=== PATIENT | female | born 1945 | race Hispanic/Latino ===

== ENCOUNTER 2018-06-08 09:22 | Emergency (ER) | payer BC, MEDICARE ==
[2018-06-08 09:42] VITALS: BMI 21.9
--- NOTE | 2018-06-08 10:05 | ED PDOC ---
HPI: Trauma/Fall - HPI Time Seen by Provider: 06/08/18 09:33 Chief Complaint (Nursing): Trauma Chief Complaint (Provider): Trauma History Per: Family (Sister) History/Exam Limitations: clinical condition Onset/Duration Of Symptoms: Days (x1) Additional Complaint(s): 72 y/o female with history of Alzheimer brought in by EMS for evaluation s/p a fall. Sister noted patient fell out of bed last night and heard and thump. Patient cannot provide history due to dementia. Unknown head injury or loss of consciousness. PMD: Neville Christensen III Past Medical History Reviewed: Historical Data, Nursing Documentation, Vital Signs Vital Signs: Last Vital Signs Temp 98.1 F 06/08/18 09:40 Pulse 80 06/08/18 09:40 Resp 16 06/08/18 09:40 BP 123/66 06/08/18 09:40 Pulse Ox 96 06/08/18 09:40 - Medical History PMH: Alzheimer's Disease, Anxiety, Arthritis, Dementia, HTN, Hyperlipidemia, Migraine, Seizures Denies: Chronic Kidney Disease - Surgical History Surgical History: No Surg Hx - Family History Family History: States: Unknown Family Hx - Social History Current smoker - smoking cessation education provided: No Alcohol: None Drugs: Denies - Home Medications Home Medications: Ambulatory Orders Medication Instructions Recorded Atorvastatin [Lipitor] 40 mg PO HS 06/08/18 Dextromethorphan HBr/Quinidine 1 tab PO DAILY 06/08/18 [Nuedexta 20-10 mg Capsule] Divalproex Sodium 250 mg PO DAILY 06/08/18 Divalproex [Depakote ER] 500 mg PO DAILY 06/08/18 Ibuprofen [Motrin Tab] 800 mg PO TID PRN 06/08/18 LORazepam [Ativan] 0.5 mg PO PRN PRN 06/08/18 Memantine [Namenda] 10 mg PO BID 06/08/18 Naproxen [Naprosyn] 500 mg PO Q12H #20 tab 06/08/18 Pantoprazole [Protonix EC Tab] 40 mg PO PRN PRN 06/08/18 Quetiapine Fumarate [Seroquel] 25 mg PO PRN PRN 06/08/18 Venlafaxine [Effexor XR] 150 mg PO DAILY 06/08/18 - Allergies Allergies/Adverse Reactions: Allergies Allergy/AdvReac Type Severity Reaction Status Date / Time acetaminophen [From Fioricet] Allergy RASH Verified 06/08/18 09:45 butalbital [From Fioricet] Allergy RASH Verified 06/08/18 09:45 caffeine [From Fioricet] Allergy RASH Verified 06/08/18 09:45 codeine Allergy RASH Verified 06/08/18 09:45 Review of Systems Review Of Systems: ROS cannot be obtained secondary to pt's inabilty to answer questions. Physical Exam - Reviewed Nursing Documentation Reviewed: Yes Vital Signs Reviewed: Yes - Physical Exam Appears: Positive for: Non-toxic, No Acute Distress Head Exam: Positive for: ATRAUMATIC, NORMOCEPHALIC Skin: Positive for: Normal Color, Warm, Dry Eye Exam: Positive for: Normal appearance, EOMI, PERRL Neck: Positive for: Normal, Painless ROM, Supple Cardiovascular/Chest: Positive for: Regular Rate, Rhythm. Negative for: Murmur Respiratory: Positive for: Normal Breath Sounds. Negative for: Wheezing, Respiratory Distress Gastrointestinal/Abdominal: Positive for: Normal Exam, Soft. Negative for: Te nderness Back: Positive for: Normal Inspection. Negative for: L CVA Tenderness, R CVA Tenderness Extremity: Positive for: Normal ROM (upper and lower), Swelling (and ecchymosis of 3rd and 4th metacarpal area), Other. Negative for: Tenderness (of hip), Deformity Neurologic/Psych: Positive for: Alert. Negative for: Oriented, Motor/Sensory Deficits - Laboratory Results Result Diagrams: 06/08/18 10:39 06/08/18 10:39 - ECG O2 Sat by Pulse Oximetry: 96 (RA) Pulse Ox Interpretation: Normal Medical Decision Making Medical Decision Making: Time: 958 A/P: Considering syncope and patient's inability to provide history, will obtain CT head, labs as well as imaging of extremities Scribe Attestation: Documented by Marily Gill, acting as a scribe for Simone Gabriel MD. Discussed with Dr. Christensen. Finger fx can be splinted and followed as outpt Provider Scribe Attestation: All medical record entries made by the Scribe were at my direction and personally dictated by me. I have reviewed the chart and agree that the record accurately reflects my personal performance of the history, physical exam, medical decision making, and the department course for this patient. I have also personally directed, reviewed, and agree with the discharge instructions and disposition. Disposition - Clinical Impression Clinical Impression: Finger fracture - Patient ED Disposition Is Patient to be Admitted: No - Disposition Referrals: Neville Christensen III, MD [Staff Provider] - Disposition: Routine/Home Disposition Time: 11:53 Condition: FAIR Prescriptions: Naproxen [Naprosyn] 500 mg PO Q12H #20 tab Instructions: Finger Fracture Forms: [facility] (Serbian)
[2018-06-08] MEDS ORDERED: Albuterol-Ipratrop 3 mg / 0.5 (3 ml) UD ONE (10:27)
[2018-06-08] MEDS: Albuterol-Ipratrop 3 mg / 0.5 (3 ml) UD IH STA (10:30)
[2018-06-08 10:50] LABS: BASO # 0.1 K/uL (0.0-0.2); BASO % 0.9 % (0.0-2.0); EOS % 0.5 % (0.0-4.0); HEMOGLOBIN 13.7 g/dL (12.0-16.0); LYMPH # 2.3 K/uL (1.0-4.3); LYMPH % 34.7 % (20.0-40.0); MEAN CELL VOLUME 93.1 fl (81.0-99.0); MEAN CORPUSCULAR HEMOGLOBIN 31.6 pg (27.0-31.0); MEAN PLATELET VOLUME 8.9 fl (7.2-11.7); MONO # 0.4 K/uL (0.0-0.8); MONO % 6.4 % (0.0-10.0); NEUT # 3.9 K/uL (1.8-7.0); NEUT % 57.5 % (50.0-75.0); NRBC % 0.1 % (0.0-0.0); RBC 4.32 Mil/uL (3.80-5.20); RED CELL DISTRIBUTION WIDTH 13.2 % (11.5-14.5); WHITE BLOOD COUNT 6.7 K/uL (4.8-10.8)
[2018-06-08 10:56] LABS: ALB/GLOB RATIO 1.2 (1.0-2.1); ALBUMIN 3.9 g/dL (3.5-5.0); ALT/SGPT 27 U/L (9-52); AST/SGOT 21 U/L (14-36); BLOOD UREA NITROGEN 15 mg/dl (7-17); CALCIUM 9.5 mg/dL (8.4-10.2); GFR NON-AFRICAN AMERICAN > 60
--- NOTE | 2018-06-08 11:46 | CT ---
Date of service: 06/08/2018 PROCEDURE: CT HEAD WITHOUT CONTRAST. HISTORY: Rule out hemorrhage. COMPARISON: None available. TECHNIQUE: Axial computed tomography images were obtained through the head/brain without intravenous contrast. Radiation dose: Total exam DLP = 895.22 mGy-cm. This CT exam was performed using one or more of the following dose reduction techniques: Automated exposure control, adjustment of the mA and/or kV according to patient size, and/or use of iterative reconstruction technique. FINDINGS: HEMORRHAGE: No acute parenchymal, subarachnoid or extra-axial hemorrhage. BRAIN: Mild to moderate diffuse/confluent chronic periventricular white matter ischemic changes seen extending peripherally into the deep and subcortical white matter both cerebral hemispheres. There is marked dilatation of the 3rd and lateral ventricles and to a lesser degree 4th ventricle.; Findings could be secondary to significant central volume loss or chronic compensated obstructive hydrocephalus-communicating type however possibility of normal pressure hydrocephalus should be considered only if the clinical triad of dementia, ataxia and incontinence present. Clinical correlation recommended. Few scattered small extra-axial calcifications seen likely representing simple dural base calcifications. VENTRICLES: Marked dilatation of the third lateral and to a slightly lesser degree 4th ventricle as described; see above discussion for differential diagnostic considerations.. CALVARIUM: No acute calvarial fractures. PARANASAL SINUSES: Unremarkable as visualized. No significant inflammatory changes. MASTOID AIR CELLS: Unremarkable as visualized. No inflammatory changes. OTHER FINDINGS: None. IMPRESSION: No acute intracranial hemorrhage. Mild to moderate chronic white matter ischemic changes of. Marked dilatation of the 3rd and lateral and to a lesser degree 4th ventricle. Findings could be secondary to central volume loss however on chronic compensated obstructive hydrocephalus-communicating type.. Normal pressure hydrocephalus to be considered to be considered only if the clinical triad of dementia, ataxia and incontinence present.
[2018-06-08 14:29] VITALS: BP 128/78; PULSE 78; RESP 18; TEMP 97.5; O2SAT 98
--- NOTE | 2018-06-08 14:35 | RAD ---
PROCEDURE: Right Hand Radiographs. HISTORY: Trauma COMPARISON: None. FINDINGS: BONES: There is a comminuted appearing displaced fracture of the base of the proximal phalanx 5th digit. It is unclear whether the fracture extends into the joint space margin markedly foreshortened 4th metacarpal. JOINTS: Degenerative osteoarthritis seen at the level of the greater multangular/1st metacarpal. Minimal multi articular degenerative changes seen as well. SOFT TISSUES: Normal. OTHER FINDINGS: None. IMPRESSION: There is a comminuted appearing displaced fracture base proximal phalanx 5th digit. It is unclear whether the fracture line extends into the joint space margin. Markedly foreshortened 4th metacarpal Note this report was placed in PA review folder for follow up.
--- NOTE | 2018-06-08 14:36 | RAD ---
Date of service: 06/08/2018 PROCEDURE: Radiographs of the pelvis. HISTORY: trauma COMPARISON: None. FINDINGS: BONES: Pelvic Bones: Unremarkable. Hips: Grossly unremarkable. JOINTS: Sacroiliac Joints: Unremarkable. Pubic Symphysis: Unremarkable. Minimal degenerative changes both hip joints Mild degenerative osteoarthritis lower lumbosacral spine. OTHER FINDINGS: None. IMPRESSION: Unremarkable radiographs of the pelvis.
--- NOTE | 2018-06-08 20:44 | CARD ---
APPROVED REPORT Date of service: 06/08/2018 EKG Measurement Heart [id number] NM [id number] <Conclusion> Sinus rhythm with 1st degree AV block Otherwise normal ECG
== END 2018-06-08 14:29 | disposition home or self-care (01) ==
LOC: H.ER 09:22
DX: S62.616A Displaced fracture of proximal phalanx of right little finger, initial encounter for closed fracture (principal); S69.91XA Unspecified injury of right wrist, hand and finger(s), initial encounter; W06.XXXA Fall from bed, initial encounter; Y92.003 Bedroom of unspecified non-institutional (private) residence as the place of occurrence of the external cause; G30.9 Alzheimer's disease, unspecified; I10 Essential (primary) hypertension; E78.5 Hyperlipidemia, unspecified; F02.80 Dementia in other diseases classified elsewhere, unspecified severity, without behavioral disturbance, psychotic disturbance, mood disturbance, and anxiety

== ENCOUNTER 2018-06-26 11:40 | Emergency (ER) | payer BC, MEDICARE ==
[2018-06-26 11:40] VITALS: BMI 21.9
[2018-06-26 11:53] VITALS: BP 122/70; PULSE 79; RESP 16; TEMP 97; O2SAT 100
--- NOTE | 2018-06-26 12:40 | ED PDOC ---
Upper Extremity Pain/Injury Time Seen by Provider: 06/26/18 12:29 Chief Complaint (Nursing): Finger,Hand,&Wrist Chief Complaint (Provider): HAND INJURY History Per: Patient (72 Y/O FEMALE H/O DEMENTIA HERE FOR F/U OF HAND INJURY THAT OCCURRED 05/2018. UNABLE TO F/U WITH HER PRIMARY ORTHOPEDIST DR. CHRISTENSEN DUE TO MOBILITY AND ADVISED TO COME TO ED FOR F/U. ADDITIONAL CONCERN OF ONGOING UTI. NO FEVERS/CHILLS/ABD PAIN.) Past Medical History Reviewed: Historical Data, Nursing Documentation, Vital Signs Vital Signs: Last Vital Signs Temp 97 F L 06/26/18 11:50 Pulse 79 06/26/18 11:50 Resp 16 06/26/18 11:50 BP 122/70 06/26/18 11:50 Pulse Ox 100 06/26/18 11:50 - Medical History PMH: Alzheimer's Disease, Anxiety, Arthritis, Dementia, HTN, Hyperlipidemia, Migraine, Seizures Denies: Chronic Kidney Disease - Family History Family History: States: Unknown Family Hx - Home Medications Home Medications: Ambulatory Orders Medication Instructions Recorded Atorvastatin [Lipitor] 40 mg PO HS 06/08/18 Dextromethorphan HBr/Quinidine 1 tab PO DAILY 06/08/18 [Nuedexta 20-10 mg Capsule] Divalproex Sodium 250 mg PO DAILY 06/08/18 Divalproex [Depakote ER] 500 mg PO DAILY 06/08/18 Ibuprofen [Motrin Tab] 800 mg PO TID PRN 06/08/18 LORazepam [Ativan] 0.5 mg PO PRN PRN 06/08/18 Memantine [Namenda] 10 mg PO BID 06/08/18 Naproxen [Naprosyn] 500 mg PO Q12H #20 tab 06/08/18 Pantoprazole [Protonix EC Tab] 40 mg PO PRN PRN 06/08/18 Quetiapine Fumarate [Seroquel] 25 mg PO PRN PRN 06/08/18 Venlafaxine [Effexor XR] 150 mg PO DAILY 06/08/18 - Allergies Allergies/Adverse Reactions: Allergies Allergy/AdvReac Type Severity Reaction Status Date / Time acetaminophen [From Fioricet] Allergy RASH Verified 06/08/18 09:45 butalbital [From Fioricet] Allergy RASH Verified 06/08/18 09:45 caffeine [From Fioricet] Allergy RASH Verified 06/08/18 09:45 codeine Allergy RASH Verified 06/08/18 09:45 Review of Systems ROS Statement: Except As Marked, All Systems Reviewed And Found Negative Physical Exam - Reviewed Nursing Documentation Reviewed: Yes Vital Signs Reviewed: Yes - Physical Exam Appears: Positive for: Well, Non-toxic, No Acute Distress Head Exam: Positive for: ATRAUMATIC, NORMAL INSPECTION, NORMOCEPHALIC Skin: Positive for: Normal Color, Warm, DRY Eye Exam: Positive for: EOMI, Normal appearance, PERRL ENT: Positive for: Normal ENT Inspection Neck: Positive for: Normal, Painless ROM Cardiovascular/Chest: Positive for: Regular Rate, Rhythm Respiratory: Positive for: CNT, Normal Breath Sounds Gastrointestinal/Abdominal: Positive for: Normal Exam, Soft Back: Positive for: Normal Inspection Extremity: Positive for: Normal ROM, Deformity (FIFTH DIGIT.), Swelling Neurologic/Psych: Positive for: Alert, Oriented - Laboratory Results Urine dip results: Negative for: Leukocyte Esterase, Blood, Nitrate, Ketones, Glucose, Bilirubin, Protein - ECG O2 Sat by Pulse Oximetry: 100 - Progress ED Course And Treament: D/W DR. CHRISTENSEN WHO IS AWARE FAMILY IS IN ED. xry reviewed with Dr. Tavares. Patient placed in finger splint and buddytaped to 4th digit. Son to call tomorrow to discuss options of management with Dr. Christensen. Disposition - Clinical Impression Clinical Impression: Finger fracture - Patient ED Disposition Is Patient to be Admitted: No - Disposition Disposition: Routine/Home Disposition Time: 13:22 Condition: FAIR Instructions: Finger Fracture (DC)
[2018-06-26 13:32] LABS: SQUAMOUS EPITHIAL 1 /hpf (0-5); URINE BILIRUBIN NEGATIVE (NEGATIVE); URINE BLOOD NEGATIVE (NEGATIVE); URINE CLARITY SLIGHTY-CLOUDY (Clear); URINE COLOR YELLOW (YELLOW); URINE GLUCOSE (UA) NEG (NEGATIVE); URINE LEUKOCYTE ESTERASE NEG Leu/uL (Negative); URINE PROTEIN 30 mg/dL (NEGATIVE); URINE UROBILINOGEN 0.2-1.0 mg/dL (0.2-1.0)
--- NOTE | 2018-06-26 14:30 | RAD ---
Date of service: 06/26/2018 PROCEDURE: Right small finger radiographs. HISTORY: H/O FX COMPARISON: Comparison made with prior radiographs of the right hand dated 06/08/2018. TECHNIQUE: AP radiograph of the right hand, as well as spot oblique and lateral images of small finger were obtained. FINDINGS: RIGHT SMALL FINGER: Again seen is a comminuted displaced fracture of the base proximal phalanx 5th digit. Fracture line may extend into the joint space margin.. Proximal aspect of the larger distal fragment exhibits palmar displacement. No other acute displaced fractures. Markedly foreshortened appearance of the 4th metacarpal felt to be congenital and/or developmental.. Diffuse demineralization JOINTS: Mild degenerative osteoarthritis greater marked angular/1st metacarpal. Minimal multi articular degenerative osteoarthritis. SOFT TISSUES: Normal. OTHER FINDINGS: None. IMPRESSION: Again seen is a comminuted displaced fracture of the base proximal phalanx 5th digit. Fracture line may extend into the joint space margin.. Proximal aspect of the larger distal fragment exhibits palmar displacement. No other acute displaced fractures. Markedly foreshortened appearance of the 4th metacarpal felt to be congenital and/or developmental.. Diffuse demineralization
== END 2018-06-26 13:33 | disposition home or self-care (01) ==
LOC: H.ER 11:40
DX: Z47.89 Encounter for other orthopedic aftercare (principal); F03.90 Unspecified dementia, unspecified severity, without behavioral disturbance, psychotic disturbance, mood disturbance, and anxiety